=== PATIENT | female | born 1940 | race Caucasian/White ===

== ENCOUNTER → 2016-07-06 | Outpatient (CLI) | payer MEDICARE, BC ==
[~2016-07-06] MED LIST: VICODIN 5/1 TAB 5/50 PO
--- NOTE | ~2016-07-06 | CT107 ---
[facility] A Service of [facility] & [facility] RADIOLOGY TEXT RESULTS PATIENT: ROJELIO FRANKEL LOCATION: [facility] : 39 UNIT #: [id number] AGE: [address]: Traci Wells SEX: F ORDER DR: [id number] [facility] [address] [place], [place] [address] [id number] O MR#: [id number] Acc #: [id number] NAME: ROJELIO FRANKEL : 1940 SEX: F STUDY DATE/TIME: 07/06/2016 13:44 UNIT: [facility] ROOM: STUDY DESCRIPTION: CT Pelvis Wo Cont Attending Physician: Damion Mike Referring Physician: Damion Mike Ordering Physician: Ingris Not Listed Primary Care Physician: Anders Rea M.D. MEDICAL IMAGING REPORT This report is preliminary unless electronic signature is present EXAM CT pelvis without contrast. HISTORY 75-year-old female; right hip pain since September 2015. COMPARISON CT abdomen and pelvis 07/23/2015, and pelvic and left hip films 09/10/2014. TECHNIQUE Thin section axial images performed through the hips and pelvis with multiplanar reconstructed images reviewed at a workstation. This CT exam was performed with one or more of the following radiation dose reduction techniques: automatic exposure control, adjustment of mA and/or kV according to patient size, and iterative reconstruction. FINDINGS Examination demonstrates moderately advanced bilateral L4-5 and L5-S1 facet arthropathy. Arthropathy is greater on the right in both L4-L5 and L5-S1 levels. This may be a significant contributing factor to the patient's right hip pain. Imaging of hip joints demonstrates early arthritic changes in the right hip with developing marginal osteophyte. No fracture identified. No bone changes are identified to suggest avascular necrosis. No lytic or blastic lesions identified. Mild degenerative changes at the pubic symphysis. There does appear to be a small amount of chondrocalcinosis at the pubic symphysis, which can be associated with calcium pyrophosphate deposition disease. Pelvic and proximal thigh musculature appears normal. Internal pelvic structures are remarkable for 2 cystic lesions within the adnexa, 1 on the left measuring 3.5 cm, and the 1 on the right measuring 2.5 cm. I suspect these represent ovarian cysts, but given the patient's advanced age, further evaluation and followup with followup with pelvic ultrasound [facility] A Service of [facility] & [facility] RADIOLOGY TEXT RESULTS PATIENT: ROJELIO FRANKEL LOCATION: [facility] : 39 UNIT #: [id number] AGE: [address]: Traci Wells SEX: F ORDER DR: may be warranted to confirm the suspected simple nature. There is sigmoid diverticulosis. IMPRESSION 1. Moderately advanced facet arthropathy bilaterally at L4-L5 and L5-S1, but greater on the right. This may be contributing factor the patient's right hip pain. 2. Subtle early degenerative changes, right hip, with small developing marginal osteophyte, femoral head. 3. Chondrocalcinosis at the pubic symphysis can be associated with calcium pyrophosphate deposition disease or pseudogout. 4. Bilateral low-attenuation mass lesions within the pelvis probably represent ovarian cysts, but in this postmenopausal patient, follow-up ultrasound recommended to confirm the suspected nature of these lesions. Dictated by... Nazia Gonzalez M.D. THIS IS AN ELECTRONICALLY VERIFIED REPORT Nazia Gonzalez M.D. at 07/06/2016 10:34 PM Victoria TD: 07/06/2016 17:02 JOB #: [id number] MEDICAL IMAGING REPORT Page 1 of 1 COPY
== END | disposition home or self-care (01) ==
LOC: CCAT 13:17
DX: M25.551 Pain in right hip (principal); M11.251 Other chondrocalcinosis, right hip; M25.851 Other specified joint disorders, right hip; M25.751 Osteophyte, right hip
CPT/HCPCS: 72192

== ENCOUNTER → 2016-07-18 | Outpatient (CLI) | payer MEDICARE, BC ==
--- NOTE | ~2016-07-18 | US98 ---
[facility] A Service of [facility] & [facility] RADIOLOGY TEXT RESULTS PATIENT: ROJELIO FRANKEL LOCATION: [facility] : 39 UNIT #: [id number] AGE: [address]: Jair Grey MD SEX: F ORDER DR: [id number] [facility] [address] [place], [place] [address] [id number] O MR#: [id number] Acc #: [id number] NAME: ROJELIO FRANKEL : 1940 SEX: F STUDY DATE/TIME: 07/18/2016 10:39 UNIT: [facility] ROOM: STUDY DESCRIPTION: US Pelvic Non-OB Complete Attending Physician: Jair Grey M.D. Referring Physician: Jair Grey M.D. Ordering Physician: Jair Grey M.D. Primary Care Physician: Anders Rea M.D. MEDICAL IMAGING REPORT This report is preliminary unless electronic signature is present EXAM Pelvic ultrasound 07/18/2016 INDICATIONS Ovarian cyst seen on a recent CT pelvis. FINDINGS Transabdominal and transvaginal imaging of the pelvis is performed in multiple planes. Transvaginal imaging performed for better evaluation of the adnexa. Comparison made with CT pelvis from 07/06/2016. Uterus measures about 6.4 x 2.2 x 4.3 cm. Nabothian cysts are present in the cervix. Endometrial stripe is about 2 mm. There are bilateral ovarian cysts. The one on the right measures up to about 2.2 cm in greatest dimension. The one on the left measures up to about 3.9 cm in greatest dimension. Both of these appear to represent simple cysts. No free fluid is seen. IMPRESSION 1. Age-appropriate appearance to the uterus and endometrial stripe. 2. Nabothian cysts in the cervix. 3. Bilateral simple ovarian cysts as above. Dictated by... Wiliam Lara Jr., M.D. THIS IS AN ELECTRONICALLY VERIFIED REPORT Wiliam Lara Jr., M.D. at 07/20/2016 5:53 AM ZENAK/yue TD: 07/19/2016 18:17 JOB #: [id number] [facility] A Service of [facility] RADIOLOGY TEXT RESULTS PATIENT: ROJELIO FRANKEL LOCATION: [facility] : 39 UNIT #: [id number] AGE: [address]: Jair Grey MD SEX: F ORDER DR: MEDICAL IMAGING REPORT Page 1 of 1 COPY
== END | disposition home or self-care (01) ==
LOC: CWCC 09:56
DX: N83.202 Unspecified ovarian cyst, left side (principal); N83.201 Unspecified ovarian cyst, right side; N88.8 Other specified noninflammatory disorders of cervix uteri
CPT/HCPCS: 76830; 76856

== ENCOUNTER → 2016-10-05 | Outpatient (CLI) | payer MEDICARE, BC ==
--- NOTE | ~2016-10-05 | CR63 ---
[facility] A Service of [facility] RADIOLOGY TEXT RESULTS PATIENT: ROJELIO VEGA LOCATION: [facility] : 39 UNIT #: [id number] AGE: [address]: Wiliam Castro MD SEX: F ORDER DR: [id number] [facility] [address] [place], [place] [address] [id number] O MR#: [id number] Acc #: [id number] NAME: ROJELIO VEGA : 1940 SEX: F STUDY DATE/TIME: 10/05/2016 13:20 UNIT: [facility] ROOM: STUDY DESCRIPTION: CR Chest 2 View Attending Physician: Wiliam Castro M.D. Referring Physician: Wiliam Castro M.D. Ordering Physician: Wiliam Castro M.D. Primary Care Physician: Anders Rea M.D. MEDICAL IMAGING REPORT This report is preliminary unless electronic signature is present EXAMINATION PA and lateral chest DATE 10/05/2016 HISTORY Cough and shortness of breath for 1 week. History of renal carcinoma with left nephrectomy in September 2015. COMPARISON CT abdomen lung windows 07/23/2015. There is no prior dedicated chest radiograph at this institution for comparison. FINDINGS There is a nodular density at the right base partially obscuring the [id number] margin of the right hemidiaphragm, and this nodular density measures 5.9 x 3.6 cm. It has no definite correlate on previous CT abdomen topogram. Left lung is clear. Normal heart size. There is thoracolumbar curvature toward the left. Multilevel degenerative endplate changes are present within the imaged thoracic and lumbar spine. IMPRESSION 1. 5.9 x 3.6 cm nodular opacity in the right base obscuring the diaphragmatic margin. This finding is thought to be new compared to the CT abdomen topogram image from 07/22/2016. Dedicated CT chest with contrast is recommended for further evaluation at this time, as malignancy or metastatic disease cannot be excluded. Dictated by... Vonda Richard M.D. [facility] A Service of [facility] RADIOLOGY TEXT RESULTS PATIENT: ROJELIO VEGA LOCATION: [facility] : 39 UNIT #: [id number] AGE: [address]: Wiliam Castro MD SEX: F ORDER DR: THIS IS AN ELECTRONICALLY VERIFIED REPORT Vonda Richard M.D. at 10/06/2016 2:21 PM ATA/belle TD: 10/06/2016 00:57 JOB #: [id number] MEDICAL IMAGING REPORT Page 1 of 1 COPY
[2016-10-05 14:47] LABS: BILIRUBIN,TOTAL 0.7 mg/dL (0.2-2.0); BUN/CREATININE RATIO 25.55; CALCIUM SERUM 9.6 mg/dL (8.4-10.2); CREATININE SERUM 0.9 mg/dL (0.6-1.4); GLOM FILT RATE Estimated 62.2 mL/min (>60); POTASSIUM 4.1 mmol/L (3.5-5.1); PROTEIN TOTAL SERUM 7.3 g/dL (6.0-8.3)
== END | disposition home or self-care (01) ==
LOC: CRAD 13:06
PROVIDERS: Urology
DX: C64.9 Malignant neoplasm of unspecified kidney, except renal pelvis (principal); J98.6 Disorders of diaphragm
CPT/HCPCS: 36415; 71020; 80053